=== PATIENT | male | born 1940 | race Caucasian/White ===

== ENCOUNTER → 2018-03-26 | Outpatient (CLI) | payer MEDICARE, OTHER ==
[~2018-03-26] MED LIST: ACAI500C4 PO; ALLO100T70 PO; ASPI-1471 PO; ATOR10TA24 PO; ATOR40TA24 PO; BIMOD OP; EZET10TA41 PO; FLU45SYR17 IM; HCTZ25 PO; HYDR12.556 PO; INDO75CA PO; KETO10TA PO; LIS10 PO; LISI-374 PO; LUTE20CA11 PO; LUTE6TAB PO; OMEG-11 PO; PER PO; POTA-35 PO; RESV250C PO; [UNRECOGNIZED DRUG - CODE] PO; [UNRECOGNIZED DRUG - OTHER] PO
== END ==
LOC: LAB 14:43
PROVIDERS: ATTEND Internal Medicine
DX: M1A.9XX1 Chronic gout, unspecified, with tophus (tophi) (principal)
CPT/HCPCS: 36415; 84550